=== PATIENT | female | born 1975 | race African-American/Black ===

== ENCOUNTER 2022-06-29 18:21 | Emergency (ER) | payer MEDICAID ==
[~2022-06-29] VITALS: Ht 172.7 cm; Wt 90.0 kg
[2022-06-29 18:43] VITALS: BP 162/96
[2022-06-29] MEDS ORDERED: HYDROCODONE/ACETAMINOPHEN 5/325MG TABLET PO ONE (21:15)
[2022-06-29 21:49] LABS: CLARITY URINE CLEAR (CLEAR); COLOR URINE DARK YELLOW (YELLOW); KETONES URINE TRACE (NEGATIVE); LEUKOCYTE ESTERASE URINE 1+ (NEGATIVE); NITRITE URINE NEGATIVE (NEGATIVE); OCCULT BLOOD URINE NEGATIVE (NEGATIVE); PH URINE 5.5 (4.5-8.0); PROTEIN URINE TRACE (NEGATIVE); SPECIFIC GRAVITY URINE 1.033 (1.005-1.030)
[2022-06-30] MEDS ORDERED: LIDO700A30 TP (00:12)
== END 2022-06-30 00:22 | disposition home or self-care (01) ==
LOC: ER 18:21
DX: R19.09 Other intra-abdominal and pelvic swelling, mass and lump (principal); Z85.42 Personal history of malignant neoplasm of other parts of uterus; Z88.6 Allergy status to analgesic agent
CPT/HCPCS: 76830; 76856; 81003; 81025; 99284

== ENCOUNTER 2024-10-01 06:58 | Inpatient (IN) | payer OTHER ==
[~2024-10-01] VITALS: Ht 160 cm; Wt 115.7 kg
[~2024-10-01 06:58] MED LIST: LAMO200T50 PO; METR-167 MT
[2024-10-01 08:10] LABS: CHLORIDE 106 mEq/L (98-107); HEMATOCRIT. 34.3 % (36.0-48.0); MEAN CORPUSCULAR HEMOGLOBIN 19.9 pg (28.0-32.0); MEAN CORPUSCULAR VOLUME 62.4 fL (81.0-99.0); MEAN PLATELET VOLUME 8.7 fl (7.4-10.4); PLATELET 361 x1000/uL (130-400); POTASSIUM 4.8 mEq/L (3.5-5.1); RED BLOOD CELL COUNT 5.49 mill/uL (4.2-5.4); RED CELL DISTRIBUTION WIDTH 19.8 % (11.6-14.6); SODIUM 137 mEq/L (136-145); WHITE BLOOD COUNT 7.2 x1000/uL (4.5-11.0)
[2024-10-01 08:11] LABS: CALCIUM 9.5 mg/dL (8.7-10.4); CARBON DIOXIDE 25 mEq/L (21-32); PROTHROMBIN TIME 10.6 sec (9.6-11.0)
[2024-10-01 08:14] LABS: HCG SCREEN NEGATIVE
[2024-10-01 08:16] LABS: CREATININE 0.7 mg/dL (0.6-1.0); GLUCOSE 102 mg/dL (70-105); UREA NITROGEN BLOOD 6 mg/dL (9-23)
[2024-10-01 08:21] LABS: DIFFERENTIAL COMMENT 1
[2024-10-01] MEDS: ACETAMINOPHEN 1000MG/100ML 100 ML IV ONE (08:41)
[2024-10-01] MEDS: LACTATED RINGERS 1,000 ML IV SCH (08:41)
[2024-10-01 09:01] LABS: ANISOCYTOSIS 2+; HYPOCHROMASIA 2+; PLATELET ESTIMATE NORMAL
[2024-10-01 09:02] LABS: MICROCYTOSIS 3+; TARGET CELLS 1+
[2024-10-01 09:34] LABS: ALANINE AMINOTRANSFERASE 9 IU/L (10-49); ALBUMIN 4.2 g/dL (3.2-4.8); ASPARTATE AMINOTRANSFERASE 30 IU/L (<34); BILIRUBIN DIRECT 0.2 mg/dL (<=3.0); BILIRUBIN TOTAL 0.5 mg/dL (0.1-1.0); PROTEIN TOTAL 7.7 g/dL (6.0-8.3)
[2024-10-01 10:00] VITALS: BP 142/91; PULSE 84; RESP 19; TEMP 36.3
[2024-10-01] MEDS ORDERED: ACETAMINOPHEN 325MG TABLET PO PRN (10:45)
[2024-10-01] MEDS ORDERED: DIATR MEGLU/DIATRIZOATE SOLN 120ML ONE (11:58)
[2024-10-01 12:00] VITALS: BP 150/102; PULSE 86; RESP 20; TEMP 36.8; O2SAT 97
[2024-10-01] MEDS: MORPHINE SULFATE 2 MG/ML INJ (NOT FOR IM USE) IV PRN (12:18)
[2024-10-01] MEDS: ONDANSETRON HCL 4MG/2ML INJ IV PRN (14:36)
[2024-10-01] MEDS: SODIUM CHLORIDE 0.9% 1,000 ML IV SCH (14:36)
[2024-10-01] MEDS: MVI, ADULT NO.1 10 ML, FOLIC ACID 1 MG, THIAMINE HCL 100 MG in SODIUM CHLORIDE 0.9% 1,0... IV SCH (14:37)
[2024-10-01] MEDS: ENOXAPARIN 30MG/0.3ML SYR SUBCUT SCH (14:38)
[2024-10-01 14:39] LABS: CLARITY URINE CLEAR (CLEAR); COLOR URINE YELLOW (YELLOW); GLUCOSE URINE NEGATIVE (NEGATIVE); KETONES URINE 1+ (NEGATIVE); LEUKOCYTE ESTERASE URINE NEGATIVE (NEGATIVE); NITRITE URINE NEGATIVE (NEGATIVE); OCCULT BLOOD URINE NEGATIVE (NEGATIVE); PH URINE 7.5 (4.5-8.0); PROTEIN URINE NEGATIVE (NEGATIVE); SPECIFIC GRAVITY URINE 1.037 (1.005-1.030)
[2024-10-01 16:00] VITALS: BP 141/91; PULSE 85; RESP 19; TEMP 37; O2SAT 97
[2024-10-01] MEDS: PANTOPRAZOLE SODIUM 40 MG/VIAL IV SCH (18:29)
[2024-10-01 20:00] VITALS: BP 140/93; PULSE 89; RESP 18; TEMP 37.8; O2SAT 95
[2024-10-02] VITALS: BP 141/99; PULSE 89; RESP 18; TEMP 37.3; O2SAT 95
[2024-10-02] MEDS ORDERED: IOHEXOL-300 100 ML BOTTLE ONE (00:02)
[2024-10-02 04:00] VITALS: BP 134/93; PULSE 83; RESP 18; TEMP 36.8; O2SAT 94
[2024-10-02] MEDS: METOCLOPRAMIDE HCL 10MG/2ML VIAL IV SCH (06:22)
[2024-10-02 06:47] LABS: HEMOGLOBIN. 9.4 g/dL (12.0-16.0); MEAN CORPUSCULAR HEMOGLOBIN 19.8 pg (28.0-32.0); MEAN CORPUSCULAR HGB CONC 31.2 g/dL (31.0-37.0); MEAN CORPUSCULAR VOLUME 63.4 fL (81.0-99.0); MEAN PLATELET VOLUME 8.6 fl (7.4-10.4); PLATELET 300 x1000/uL (130-400); RED BLOOD CELL COUNT 4.72 mill/uL (4.2-5.4); RED CELL DISTRIBUTION WIDTH 20.2 % (11.6-14.6); WHITE BLOOD COUNT 6.2 x1000/uL (4.5-11.0)
[2024-10-02 06:54] LABS: CALCIUM 8.9 mg/dL (8.7-10.4); CHLORIDE 103 mEq/L (98-107); POTASSIUM 4.1 mEq/L (3.5-5.1); SODIUM 139 mEq/L (136-145)
[2024-10-02 06:55] LABS: CARBON DIOXIDE 27 mEq/L (21-32)
[2024-10-02 07:00] LABS: CREATININE 0.6 mg/dL (0.6-1.0); GLUCOSE 91 mg/dL (70-105); UREA NITROGEN BLOOD 8 mg/dL (9-23)
[2024-10-02 07:25] LABS: DIFFERENTIAL COMMENT 1
[2024-10-02 08:00] VITALS: BP 151/96; PULSE 83; RESP 20; TEMP 36.4; O2SAT 97
[2024-10-02] MEDS ORDERED: PANTOPRAZOLE SODIUM 40 MG/VIAL IV SCH (09:00)
[2024-10-02] MEDS ORDERED: DIATR MEGLU/DIATRIZOATE SOLN 30ML PO SCH (10:00)
[2024-10-02] MEDS ORDERED: DIATR MEGLU/DIATRIZOATE SOLN 30ML ONE (10:24)
[2024-10-02 14:18] LABS: ANISOCYTOSIS 2+; MICROCYTOSIS 4+; PLATELET ESTIMATE NORMAL
[2024-10-02 16:00] VITALS: BP 153/100; PULSE 89; RESP 16; TEMP 37.3; O2SAT 100
[2024-10-02 20:00] VITALS: BP 162/99; PULSE 85; RESP 18; TEMP 36.8; O2SAT 99
[2024-10-02] MEDS: MORPHINE SULFATE 4 MG/ML INJ (FOR IV/IM USE) IV PRN (22:03)
[2024-10-02] MEDS: NA PHOS,M-B/NA PHOS,DI-BA ENEMA 118ML PR NR (22:11)
[2024-10-02] MEDS: NA PHOS,M-B/NA PHOS,DI-BA ENEMA 118ML PR PRN (22:14)
[2024-10-03] VITALS: BP 128/81; PULSE 82; RESP 18; TEMP 36.6; O2SAT 98
[2024-10-03 02:54] LABS: HEMATOCRIT. 27.8 % (36.0-48.0); HEMOGLOBIN. 8.5 g/dL (12.0-16.0); MEAN CORPUSCULAR HEMOGLOBIN 19.4 pg (28.0-32.0); MEAN CORPUSCULAR HGB CONC 30.7 g/dL (31.0-37.0); MEAN CORPUSCULAR VOLUME 63.3 fL (81.0-99.0); MEAN PLATELET VOLUME 8.2 fl (7.4-10.4); PLATELET 280 x1000/uL (130-400); RED BLOOD CELL COUNT 4.39 mill/uL (4.2-5.4); RED CELL DISTRIBUTION WIDTH 20.2 % (11.6-14.6); WHITE BLOOD COUNT 5.7 x1000/uL (4.5-11.0)
[2024-10-03 03:00] LABS: INR 1.1; PROTHROMBIN TIME 11.4 sec (9.6-11.0)
[2024-10-03 03:01] LABS: DIFFERENTIAL COMMENT 1
[2024-10-03 03:37] LABS: CHLORIDE 108 mEq/L (98-107); POTASSIUM 3.9 mEq/L (3.5-5.1); SODIUM 139 mEq/L (136-145)
[2024-10-03 03:38] LABS: CALCIUM 8.4 mg/dL (8.7-10.4); CARBON DIOXIDE 27 mEq/L (21-32)
[2024-10-03 03:43] LABS: CREATININE 0.6 mg/dL (0.6-1.0); GLUCOSE 92 mg/dL (70-105); UREA NITROGEN BLOOD 8 mg/dL (9-23)
[2024-10-03 03:45] LABS: ALANINE AMINOTRANSFERASE < 7 IU/L (10-49); ALBUMIN 3.4 g/dL (3.2-4.8); ASPARTATE AMINOTRANSFERASE 13 IU/L (<34); BILIRUBIN TOTAL 0.5 mg/dL (0.1-1.0)
[2024-10-03 03:52] LABS: ATYPICAL LYMPHOCYTES 1; PLATELET ESTIMATE NORMAL
[2024-10-03 03:55] LABS: HYPOCHROMASIA 1+
[2024-10-03 03:56] LABS: MICROCYTOSIS 2+
[2024-10-03 04:00] VITALS: BP 149/96; PULSE 82; RESP 18; TEMP 36.7; O2SAT 98
[2024-10-03 08:00] VITALS: BP 134/87; PULSE 80; RESP 18; TEMP 37; O2SAT 97
[2024-10-03 12:00] VITALS: BP 138/93; PULSE 82; RESP 19; TEMP 36.6; O2SAT 100
[2024-10-03 16:00] VITALS: BP 138/93; PULSE 82; RESP 19; TEMP 36.6; O2SAT 100
[2024-10-03 20:00] VITALS: BP 121/88; PULSE 78; RESP 18; TEMP 36.7; O2SAT 94
[2024-10-04] VITALS: BP 149/98; PULSE 76; RESP 18; TEMP 36.4; O2SAT 97
[2024-10-04 04:00] VITALS: BP 131/87; PULSE 70; RESP 18; TEMP 36.7; O2SAT 95
[2024-10-04 05:47] LABS: HEMATOCRIT 26.3 % (36.0-48.0); HEMOGLOBIN 8.2 g/dL (12.0-16.0); MEAN CORPUSCULAR HEMOGLOBIN 20.1 pg (28.0-32.0); MEAN CORPUSCULAR HGB CONC 31.2 g/dL (31.0-37.0); MEAN CORPUSCULAR VOLUME 64.4 fL (81.0-99.0); PLATELET 276 x1000/uL (130-400); RED BLOOD CELL COUNT 4.09 mill/uL (4.2-5.4); RED CELL DISTRIBUTION WIDTH 20.3 % (11.6-14.6); WHITE BLOOD COUNT 5.2 x1000/uL (4.5-11.0)
[2024-10-04 05:53] LABS: INR 1.1; PROTHROMBIN TIME 11.5 sec (9.6-11.0)
[2024-10-04 06:05] LABS: CHLORIDE 102 mEq/L (98-107); POTASSIUM 3.5 mEq/L (3.5-5.1); SODIUM 137 mEq/L (136-145)
[2024-10-04 06:06] LABS: CARBON DIOXIDE 25 mEq/L (21-32)
[2024-10-04 06:07] LABS: CALCIUM 8.3 mg/dL (8.7-10.4)
[2024-10-04 06:11] LABS: CREATININE 0.5 mg/dL (0.6-1.0); GLUCOSE 77 mg/dL (70-105); UREA NITROGEN BLOOD 6 mg/dL (9-23)
[2024-10-04] MEDS ORDERED: BUPIVACAINE HCL/PF 0.5% (5MG/ML) 10ML ONE ×2 (06:45→07:26)
[2024-10-04] MEDS ORDERED: ONDANSETRON HCL 4MG/2ML INJ ONE (07:09)
[2024-10-04] MEDS ORDERED: METOCLOPRAMIDE HCL 10MG/2ML VIAL ONE (07:09)
[2024-10-04] MEDS ORDERED: EPHEDRINE SULFATE 50MG/ML VIAL ONE (07:09)
[2024-10-04] MEDS ORDERED: ROCURONIUM BROMIDE 10MG/ML VIAL 5ML IV ONE (07:09)
[2024-10-04] MEDS ORDERED: CEFAZOLIN SODIUM 1000MG/VIAL ONE (07:09)
[2024-10-04] MEDS ORDERED: PROPOFOL 200MG/20ML VIAL IV ONE (07:10)
[2024-10-04] MEDS ORDERED: FENTANYL CITRATE/PF 50MCG/ML 5ML VIAL ONE (07:10)
[2024-10-04] MEDS ORDERED: PHENYLEPHRINE HCL 10MG/ML 1ML IV ONE (07:10)
[2024-10-04] MEDS ORDERED: MIDAZOLAM HCL 2 MG/2 ML VIAL ONE (07:10)
[2024-10-04] MEDS ORDERED: FAMOTIDINE 20MG/2ML VIAL IV ONE (07:30)
[2024-10-04] MEDS ORDERED: SUGAMMADEX SODIUM 200MG/2ML VIAL IV ONE ×2 (08:01→08:22)
[2024-10-04] MEDS: HYDROMORPHONE HCL/PF 1MG/ML INJ IV PRN ×2 (08:45→12:35)
[2024-10-04] MEDS: ONDANSETRON HCL 4MG/2ML INJ IV PRN (09:35)
[2024-10-04 11:30] LABS: BASOPHILS % 0.4 % (0.0-2.0); EOSINOPHILS % 0.6 % (0.0-5.0); HEMATOCRIT. 27.4 % (36.0-48.0); HEMOGLOBIN. 8.6 g/dL (12.0-16.0); LYMPHOCYTES % 11.3 % (20.0-50.0); MEAN CORPUSCULAR HEMOGLOBIN 20.3 pg (28.0-32.0); MEAN CORPUSCULAR HGB CONC 31.4 g/dL (31.0-37.0); MEAN CORPUSCULAR VOLUME 64.4 fL (81.0-99.0); MEAN PLATELET VOLUME 8.4 fl (7.4-10.4); MONOCYTES % 9.6 % (2.0-8.0); NEUTROPHILS % 78.1 % (40.0-76.0); PLATELET 277 x1000/uL (130-400); RED BLOOD CELL COUNT 4.25 mill/uL (4.2-5.4); RED CELL DISTRIBUTION WIDTH 21.3 % (11.6-14.6); WHITE BLOOD COUNT 7.6 x1000/uL (4.5-11.0)
[2024-10-04 11:31] LABS: DIFFERENTIAL COMMENT 1
[2024-10-04 11:32] LABS: ADD RBC MORPHOLOGY NO
[2024-10-04 11:36] LABS: CHLORIDE 102 mEq/L (98-107); POTASSIUM 3.6 mEq/L (3.5-5.1); SODIUM 138 mEq/L (136-145)
[2024-10-04 11:37] LABS: CARBON DIOXIDE 26 mEq/L (21-32)
[2024-10-04 11:42] LABS: CREATININE 0.5 mg/dL (0.6-1.0); GLUCOSE 82 mg/dL (70-105); UREA NITROGEN BLOOD < 5 mg/dL (9-23)
[2024-10-04 12:00] VITALS: BP 141/87; PULSE 76; RESP 19; TEMP 36.9; O2SAT 98
[2024-10-04] MEDS ORDERED: NALOXONE HCL 0.4MG/ML VIAL IV PRN (12:45)
[2024-10-04 16:00] VITALS: BP 154/95; PULSE 74; RESP 19; TEMP 36.8; O2SAT 99
[2024-10-04 20:00] VITALS: BP 155/93; PULSE 84; RESP 18; TEMP 36.3; O2SAT 91
[2024-10-05] VITALS: BP 114/78; PULSE 81; RESP 18; TEMP 36.2; O2SAT 85
[2024-10-05 04:00] VITALS: BP 131/77; PULSE 79; RESP 18; TEMP 36.4; O2SAT 85
[2024-10-05 06:11] LABS: HEMOGLOBIN. 8.8 g/dL (12.0-16.0); MEAN CORPUSCULAR HGB CONC 31.4 g/dL (31.0-37.0); MEAN CORPUSCULAR VOLUME 63.9 fL (81.0-99.0); MEAN PLATELET VOLUME 8.7 fl (7.4-10.4); PLATELET 265 x1000/uL (130-400); RED BLOOD CELL COUNT 4.39 mill/uL (4.2-5.4); RED CELL DISTRIBUTION WIDTH 20.7 % (11.6-14.6); WHITE BLOOD COUNT 9.2 x1000/uL (4.5-11.0)
[2024-10-05 06:17] LABS: CARBON DIOXIDE 25 mEq/L (21-32); CHLORIDE 105 mEq/L (98-107); POTASSIUM 3.5 mEq/L (3.5-5.1); SODIUM 136 mEq/L (136-145)
[2024-10-05 06:18] LABS: CALCIUM 8.4 mg/dL (8.7-10.4)
[2024-10-05 06:22] LABS: CREATININE 0.5 mg/dL (0.6-1.0)
[2024-10-05 06:23] LABS: GLUCOSE 79 mg/dL (70-105); UREA NITROGEN BLOOD < 5 mg/dL (9-23)
[2024-10-05 07:02] LABS: DIFFERENTIAL COMMENT 1
[2024-10-05 07:13] LABS: ALPHA FETOPROTEIN TUMOR MARKER 3.9 ng/mL (0.0-9.2); CANCER ANTIGEN 125 11.2 U/mL (0.0-38.1); CARCINOEMBRYONIC AG - SEND OUT 0.8 ng/mL (0.0-4.7)
[2024-10-05 08:00] VITALS: BP 142/91; PULSE 83; RESP 18; TEMP 36.8; O2SAT 97
[2024-10-05 12:00] VITALS: BP 162/98; PULSE 77; RESP 18; TEMP 36.7; O2SAT 98
[2024-10-05 13:17] LABS: ANISOCYTOSIS 2+; MICROCYTOSIS 4+; PLATELET ESTIMATE NORMAL
[2024-10-05 16:00] VITALS: BP 159/100; PULSE 81; RESP 18; TEMP 36.7; O2SAT 98
[2024-10-05 20:00] VITALS: BP 132/86; PULSE 83; RESP 18; TEMP 38.5; O2SAT 93
[2024-10-06] VITALS: BP 131/79; PULSE 89; RESP 19; TEMP 37.4; O2SAT 94
[2024-10-06 04:00] VITALS: BP 123/79; PULSE 78; RESP 18; TEMP 37.1; O2SAT 96
[2024-10-06 06:57] LABS: BASOPHILS % 0.2 % (0.0-2.0); CHLORIDE 105 mEq/L (98-107); EOSINOPHILS % 1.9 % (0.0-5.0); HEMATOCRIT. 27.5 % (36.0-48.0); HEMOGLOBIN. 8.9 g/dL (12.0-16.0); LYMPHOCYTES % 7.8 % (20.0-50.0); MEAN CORPUSCULAR HEMOGLOBIN 20.5 pg (28.0-32.0); MEAN CORPUSCULAR HGB CONC 32.2 g/dL (31.0-37.0); MEAN CORPUSCULAR VOLUME 63.6 fL (81.0-99.0); MEAN PLATELET VOLUME 8.6 fl (7.4-10.4); NEUTROPHILS % 78.1 % (40.0-76.0); PLATELET 262 x1000/uL (130-400); POTASSIUM 3.4 mEq/L (3.5-5.1); RED BLOOD CELL COUNT 4.32 mill/uL (4.2-5.4); RED CELL DISTRIBUTION WIDTH 21.3 % (11.6-14.6); SODIUM 139 mEq/L (136-145); WHITE BLOOD COUNT 8.1 x1000/uL (4.5-11.0)
[2024-10-06 06:58] LABS: CARBON DIOXIDE 26 mEq/L (21-32)
[2024-10-06 06:59] LABS: CALCIUM 8.3 mg/dL (8.7-10.4)
[2024-10-06 07:00] LABS: DIFFERENTIAL COMMENT 1
[2024-10-06 07:01] LABS: ADD RBC MORPHOLOGY NO
[2024-10-06 07:03] LABS: CREATININE 0.5 mg/dL (0.6-1.0)
[2024-10-06 07:04] LABS: GLUCOSE 80 mg/dL (70-105); UREA NITROGEN BLOOD < 5 mg/dL (9-23)
[2024-10-06 08:00] VITALS: BP 137/83; PULSE 75; RESP 17; TEMP 37.1; O2SAT 100
[2024-10-06 12:00] VITALS: BP 137/83; PULSE 81; RESP 20; TEMP 36.6; O2SAT 100
[2024-10-06] MEDS: POTASSIUM CHLORIDE 20MEQ TABLET SR PO SCH (14:00)
[2024-10-06 16:00] VITALS: BP 138/85; PULSE 84; RESP 20; TEMP 36.7; O2SAT 98
[2024-10-06 20:00] VITALS: BP 142/92; PULSE 78; RESP 18; TEMP 36.4; O2SAT 91
[2024-10-07] VITALS: BP 116/69; PULSE 87; RESP 20; TEMP 36.4; O2SAT 91
[2024-10-07 04:00] VITALS: BP 122/74; PULSE 82; RESP 18; TEMP 36.6; O2SAT 90
[2024-10-07 07:13] LABS: CARBON DIOXIDE 27 mEq/L (21-32); CHLORIDE 106 mEq/L (98-107); POTASSIUM 3.6 mEq/L (3.5-5.1); SODIUM 136 mEq/L (136-145)
[2024-10-07 07:14] LABS: CALCIUM 8.7 mg/dL (8.7-10.4)
[2024-10-07 07:18] LABS: CREATININE 0.5 mg/dL (0.6-1.0)
[2024-10-07 07:19] LABS: GLUCOSE 89 mg/dL (70-105); UREA NITROGEN BLOOD < 5 mg/dL (9-23)
[2024-10-07 12:12] VITALS: BP 122/74; PULSE 86; RESP 20; TEMP 36.6; O2SAT 95
[2024-10-07 13:52] LABS: BASOPHILS % 0.4 % (0.0-2.0); EOSINOPHILS % 3.7 % (0.0-5.0); HEMATOCRIT. 29.5 % (36.0-48.0); HEMOGLOBIN. 9.2 g/dL (12.0-16.0); LYMPHOCYTES % 12.6 % (20.0-50.0); MEAN CORPUSCULAR HEMOGLOBIN 19.8 pg (28.0-32.0); MEAN CORPUSCULAR HGB CONC 31.2 g/dL (31.0-37.0); MEAN CORPUSCULAR VOLUME 63.5 fL (81.0-99.0); MEAN PLATELET VOLUME 8.7 fl (7.4-10.4); MONOCYTES % 14.4 % (2.0-8.0); NEUTROPHILS % 68.9 % (40.0-76.0); PLATELET 302 x1000/uL (130-400); RED BLOOD CELL COUNT 4.64 mill/uL (4.2-5.4); WHITE BLOOD COUNT 6.1 x1000/uL (4.5-11.0)
[2024-10-07 13:54] LABS: DIFFERENTIAL COMMENT 1
[2024-10-07 16:45] VITALS: BP 130/80; PULSE 82; RESP 20; TEMP 35.9; O2SAT 97
[2024-10-07 20:00] VITALS: BP 122/78; PULSE 91; RESP 18; TEMP 36.4; O2SAT 99
[2024-10-08] VITALS: BP 122/78; PULSE 91; RESP 18; TEMP 36.4; O2SAT 99
[2024-10-08 04:00] VITALS: BP 140/82; PULSE 76; RESP 18; TEMP 36.2; O2SAT 96
[2024-10-08 08:00] VITALS: BP 137/84; PULSE 72; RESP 17; TEMP 36.6; O2SAT 98
[2024-10-08 12:00] VITALS: BP 153/84; PULSE 80; RESP 19; TEMP 36.7; O2SAT 95
[2024-10-08] MEDS ORDERED: HYDR-4001 MT (13:31)
[2024-10-08] MEDS ORDERED: DOCU-138 MT (13:31)
[2024-10-08 14:13] VITALS: BP 153/84; PULSE 80; TEMP 98; O2SAT 95
== END 2024-10-08 16:55 | disposition home health service (06) | DRG 231 ==
LOC: ER 06:58 → EDBEDREQ 09:05 → EDBEDREQTM 09:05 → ENRESERV 09:10 → 7EST 09:27
PROVIDERS: ADMIT Internal Medicine; ATTEND Internal Medicine
PROC: 0D1L0Z4 Bypass Transverse Colon to Cutaneous, Open Approach (ICD-10-PCS; principal; 2024-10-04)
DX: K56.609 Unspecified intestinal obstruction, unspecified as to partial versus complete obstruction (principal); K59.39 Other megacolon; D50.9 Iron deficiency anemia, unspecified; I10 Essential (primary) hypertension; Z88.6 Allergy status to analgesic agent; Z98.84 Bariatric surgery status; Z98.891 History of uterine scar from previous surgery
CPT/HCPCS: 36415; 71045; 74018; 74177; 74250; 80048; 80053; 80076; 81003; 82105; 82378; 84703; 85025; 85027; 86301; 86304; 86850; 86900; 93970; 97162; 99285; A4606; J0665; J0690; J1171; J1308; J1650; J2250; J2270; J2371; J2405; J2470; J2704; J2765; J3010; J3411; J3490; J7030; Q9963; Q9967; J0131